=== PATIENT | female | born 1990 | race Hispanic/Latino ===

== ENCOUNTER → 2020-05-11 12:44 | Outpatient (CLI) | payer OTHER, SELFPAY ==
--- NOTE | ~2020-05-11 | US_ITS ---
EXAMINATION: US OB >= 14 weeks Fetus DATE: 05/11/2020 13:31 INDICATION: Late entry into care. Supervision of during third trimester. TECHNIQUE: Multiple obstetric sonographic images performed. FINDINGS: There is a single living fetus in vertex presentation. The placenta is posterior and not low-lying. Normal amniotic fluid volume. DIANE measures 13.2 cm (5th%-95%: 8.3-24.5 cm at 33 weeks estimated gest ational age). heart rate of 145 beats per minute. The following anatomy was identified as normal: Ventricles and cava septum pellucidum Cerebellum Upper lip Spine Heart Diaphragm Stomach Kidneys Bladder 3 vessel cord and cord insertion Bilateral upper and lower extremities including hands and feet The following biometric data were obtained: BPD: 8.2 cm -> 33 weeks 0 days Head circumference: 29.7 cm -> 32 weeks 6 days Abdominal circumference: 32.3 cm -> 36 weeks 1 days Femur length: 6.7 cm -> 34 weeks 4 days Head circumference to abdominal circumference ratio is greater than 2 standard deviations below the m tello: 0.92 (normal range 0.94-1.11). These measurements are otherwise concordant. Estimated weight: 2579 g (+/-) 387 g. or 5 lbs. 11 oz. (+/-) 14 oz. IMPRESSION: 1. Single living fetus with vertex presentation with heart rate of 145 bpm. 2. Gestational age by ultrasound of 34 weeks 1 day(s) (+/-) 2 week 3 day(s) with ultrasound estimat ed date of delivery (CATHERINE) of 06/21/2020. Estimated weight is 84th percentile by Hadlock criteri a when 06/25/2020 is used as the CATHERINE. Please correlate with clinical information or earlier ultrasound s for most accurate CATHERINE. 3. Head circumference to abdominal circumference ratio slightly greater than 2 standard deviations be low the mean. 4. Otherwise normal anatomic survey although evaluation is more limited than on a standard se[place] nd trimester survey. Reviewed, dictated and finalized at location A. IMPRESSION: 1. Single living fetus with vertex presentation with heart rate of 145 b pm. 2. Gestational age by ultrasound of 34 weeks 1 day(s) (+/-) 2 week 3 day(s) w ith ultrasound estimated date of delivery (CATHERINE) of 06/21/2020. Estimated weight is 84th percentile by Hadlock criteria when 06/25/2020 is used as the CATHERINE . Please correlate with clinical information or earlier ultrasounds for most ac curate CATHERINE. 3. Head circumference to abdominal circumference ratio slightly greater than 2 standard deviations below the mean. 4. Otherwise normal anatomic survey although evaluation is more limited t stone on a standard second trimester survey.
== END ==
PROVIDERS: Visit Provider Obstetrics & Gynecology
DX: O09.30 Supervision of pregnancy with insufficient antenatal care, unspecified trimester (principal); Z3A.34 34 weeks gestation of pregnancy
CPT/HCPCS: 76805